=== PATIENT | male | born 1955 | race Caucasian/White ===

== ENCOUNTER 2019-12-18 10:05 | Outpatient (CLI) | payer MEDICARE, BC ==
--- NOTE | 2019-12-18 11:48 | ULT ---
RENAL ULTRASOUND: COMPARISON: CT abdomen/pelvis 12/11/2019. MRI lumbar spine 08/07/2013. HISTORY: Hypodensity seen in the right kidney on prior ultrasound. TECHNIQUE: Multiplanar, huntre scale, and color Doppler images were obtained in a renal ultrasound. FINDINGS: There is an anechoic cyst in the right kidney measuring 2.6 cm in size. This is the abnormality seen on CT and was also seen on the MRI of the lumbar spine in 2012. No suspicious abnormality is seen i n either kidney. The shadowing foci denoted by the technologist in both kidneys likely represent the transition point between the cortical portion of the kidney and the hilar portion of the kidney. No calcifications are seen in either kidney on the recent CT. No hydronephrosis is seen on either side . The kidneys measure 10.2 and 10.4 cm in length on the right and left, respectively. Limited visualization of the urinary bladder is unremarkable. IMPRESSION: Right renal cyst. POS: [facility]
== END 2019-12-18 10:06 | disposition home or self-care (01) ==
LOC: SCSULT 10:05
PROVIDERS: ATTEND Family Medicine
DX: R93.89 Abnormal findings on diagnostic imaging of other specified body structures (principal); N28.1 Cyst of kidney, acquired
CPT/HCPCS: 76770

== ENCOUNTER 2023-09-28 08:46 | Outpatient (CLI) | payer MEDICARE, BC | END 2023-09-28 08:47 | disposition home or self-care (01) | LOC: SCSRAD 08:46 | PROVIDERS: ATTEND Family Medicine | DX: M47.26 Other spondylosis with radiculopathy, lumbar region (principal); M46.06 Spinal enthesopathy, lumbar region; M89.38 Hypertrophy of bone, other site | CPT/HCPCS: 72100 ==